=== PATIENT | female | born 1955 | race Hispanic/Latino ===

== ENCOUNTER 2017-03-05 20:12 | Inpatient (IN) | payer MEDICAID, OTHER ==
[2017-03-05 20:53] LABS: EOS % 1.1 % (0.0-4.0); HEMOGLOBIN 13.5 g/dL (11.0-16.0); LYMPH # 1.7 K/uL (1.0-4.3); LYMPH % 42.6 % (20.0-40.0); MEAN CELL VOLUME 94.9 fL (81.0-99.0); MEAN CORPUSCULAR HEMOGLOBIN 32.4 pg (27.0-31.0); MEAN CORPUSCULAR HGB CONC 34.1 g/dL (33.0-37.0); MEAN PLATELET VOLUME 9.6 fL (7.2-11.7); MONO # 0.4 K/uL (0.0-0.8); MONO % 10.4 % (0.0-10.0); NEUT # 1.8 K/uL (1.8-7.0); NEUT % 44.9 % (50.0-75.0); RBC 4.17 Mil/uL (3.80-5.20); RED CELL DISTRIBUTION WIDTH 12.6 % (11.5-14.5); WHITE BLOOD COUNT 4.1 K/uL (4.8-10.8)
[2017-03-05 21:07] LABS: ALB/GLOB RATIO 1.5 (1.0-2.1); AST/SGOT 24 U/L (14-36); BLOOD UREA NITROGEN 17 mg/dL (7-17); GFR AFRICAN-AMERICAN > 60; GFR NON-AFRICAN AMERICAN > 60
[2017-03-05 21:08] LABS: ALT/SGPT 20 U/L (9-52); BARBITURATES, UR NEGATIVE (NEGATIVE)
[2017-03-05 21:08] LABS: SQUAMOUS EPITHIAL 1 /hpf (0-5); URINE BACTERIA OCC (<OCC); URINE BILIRUBIN NEGATIVE (NEGATIVE); URINE BLOOD NEGATIVE (NEGATIVE); URINE CLARITY Clear (Clear); URINE COLOR Yellow (YELLOW); URINE GLUCOSE (UA) NORMAL (Normal); URINE LEUKOCYTE ESTERASE TRACE Leu/uL (Negative); URINE NITRATE NEGATIVE (NEGATIVE); URINE PROTEIN NEGATIVE (NEGATIVE); URINE UROBILINOGEN NORMAL mg/dL (0.2-1.0)
[2017-03-05 21:09] LABS: BENZODIAZEPINES, UR NEGATIVE (NEGATIVE)
[2017-03-05 21:12] LABS: OPIATES, UR NEGATIVE (NEGATIVE); PHENCYCLIDINE, UR NEGATIVE (NEGATIVE)
--- NOTE | 2017-03-05 21:13 | C.PDOC ---
History Of Present Illness Patient is a 61 y/o female, with PMHx of depression, that presents to the ED for evaluation of depression. Pt states she feels overwhelmed, and states she is "sick of the world", and is "having issues with the person she's living with ". Otherwise, denies any SI, or any physical complaints at this time. Time Seen by Provider: 03/05/17 20:55 Chief Complaint (Nursing): Psychiatric Evaluation History Per: Patient History/Exam Limitations: no limitations Onset/Duration Of Symptoms: Days Current Symptoms Are (Timing): Still Present Suicide/Self Injury Attempted (Context): None Modifying Factor(s): None Severity: None Pain Scale Rating Of: 0 Associated Symptoms: Depression. denies: Suicidal Thoughts, Suicidal Plan Involuntary Hold By: None Recent travel outside of the [place]: No Additional History Per: Patient Past Medical History Reviewed: Historical Data, Nursing Documentation, Vital Signs Vital Signs: Last Vital Signs Temp 97.6 F 03/05/17 23:23 Pulse 77 03/05/17 23:23 Resp 18 03/05/17 23:23 BP 119/67 03/05/17 23:23 Pulse Ox 95 03/05/17 23:23 - Medical History PMH: Anxiety, Asthma, Bipolar Disorder, Depression, Emphysema Family History: States: Unknown Family Hx - Social History Hx Tobacco Use: Yes Hx Alcohol Use: Yes (sober 9 yrs) Hx Substance Use: Yes (sober 9 yrs) - Immunization History Hx Tetanus Toxoid Vaccination: No Hx Influenza Vaccination: No Hx Pneumococcal Vaccination: No Review Of Systems Except As Marked, All Systems Reviewed And Found Negative. Constitutional: Negative for: Fever, Chills Cardiovascular: Negative for: Chest Pain, Palpitations Respiratory: Negative for: Shortness of Breath Gastrointestinal: Negative for: Nausea, Vomiting, Abdominal Pain Neurological: Negative for: Headache, Dizziness Psych: Positive for: Depression. Negative for: Suicidal ideation Physical Exam - Physical Exam Appears: Non-toxic, No Acute Distress, Other (tearful) Skin: Normal Color, Warm, Dry Head: Atraumatic, Normacephalic Eye(s): bilateral: Normal Inspection Neck: Supple Chest: Symmetrical Cardiovascular: Rhythm Regular Respiratory: Normal Breath Sounds, No Rales, No Rhonchi, No Wheezing Gastrointestinal/Abdominal: Soft, No Tenderness Extremity: Normal ROM, No Deformity Neurological/Psych: Oriented x3, Normal Speech, Normal Cognition ED Course And Treatment - Laboratory Results Result Diagrams: 03/05/17 20:46 03/05/17 20:46 O2 Sat by Pulse Oximetry: 97 (on RA) Pulse Ox Interpretation: Normal Progress Note: Labs ordered and reviewed. Medical Decision Making Medical Decision Making: depression - pt medically cleared 1020: pt accepted to crisis. Disposition - Disposition Disposition: HOSPITALIZED Disposition Time: 22:23 Condition: STABLE - Clinical Impression Clinical Impression: Depression - Scribe Statement The provider has reviewed the documentation as recorded by the Scribe Kathy Fischer All medical record entries made by the Scribe were at my direction and personally dictated by me. I have reviewed the chart and agree that the record accurately reflects my personal performance of the history, physical exam, medical decision making, and the department course for this patient. I have also personally directed, reviewed, and agree with the discharge instructions and disposition. Decision To Admit - Pt Status Changed To: Hospital Disposition Of: Inpatient - Admit Certification Admit to Inpatient:: After my assessment, the patient will require hospitalization for at least two midnights. This is because of the severity of symptoms shown, intensity of services needed, and/or the medical risk in this patient being treated as an outpatient. - InPatient: Physician Admission Certification: I certify that this patient requires 2 or more midnights of care for the following reason:: pt needs inpt pysch - . Bed Request Type: Psychiatry Admitting Physician: Karolyn Copeland Patient Diagnosis: Depression
[2017-03-05 21:18] LABS: ACETAMINOPHEN < 10.0 ug/mL (10.0-30.0); SALICYLATE < 1.0 mg/dL 1
[2017-03-05] MEDS ORDERED: Divalproex 500 mg ER Tab PO STA (23:47)
[2017-03-06 00:14] VITALS: O2SAT 97
[2017-03-06] MEDS ORDERED: Pneumococcal 23-Valent Vaccine IM ONE (00:36)
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
[2017-03-06] MEDS: Divalproex 500 mg DR Tab PO SCH ×2 (10:15→17:21)
[2017-03-06] MEDS: Albuterol-Ipratrop 20 mcg/actuation (4 g) IH SCH ×3 (13:39→21:50)
[2017-03-06] MEDS: Mometasone 110 mcg/puff-30 puff Inh INH SCH (21:50)
[2017-03-07] MEDS: Albuterol-Ipratrop 20 mcg/actuation (4 g) IH SCH ×2 (02:55→21:32)
[2017-03-07 09:00] VITALS: TEMP 98
--- NOTE | 2017-03-07 17:28 | PCM.PYCHPN ---
Psychiatric Progress Note - Psychiatric Progress Note Patient seen today, length of contact: 16 min Patient Chief Complaint: "I'm fine" Problems Identified/Issues Discussed: The pt is seen, chart reviewed, case discussed with staff. Support given, psychoed given No new symptoms reported, improving slowly and needs some more time No SEs from medications, risks discussed. After care discussed - she wants to leave by tomorrow and even put in a 48-hr notice Medication Change: No Medical Record Reviewed: Yes Mental Status Examination - Cognitive Function Orientation: Person, Place, Situation, Time Memory: Intact Attention: WNL Concentration: Poor Association: WNL Fund of Knowledge: WNL - Mood Mood: Other (Labile) - Affect Affect: Broad, Other (Labile) - Speech Speech: Appropriate - Formal Thought Process Formal Thought Process: Paranoia, Loosening of associations, Circumstantial - Suicidal Ideation Suicidal Ideation: No - Homicidal Ideation Homicidal Ideation: No Goal/Treatment Plan - Goal/Treatment Plan Need for Continued Stay: Discharge may exacerbated symptoms, Severe functional impairment Progress Toward Problem(s) and Goals/Treatment Plan: Continue medications Support and psychoeducation daily Attend groups and activities daily After care planning by GRISELDA but she wants to leave Estimated Date of D/C: 03/08/17
[2017-03-07] MEDS: Divalproex 500 mg DR Tab PO SCH (21:29)
[2017-03-07] MEDS: Mometasone 110 mcg/puff-30 puff Inh INH SCH (21:32)
[2017-03-08 07:54] VITALS: BP 114/79; PULSE 98; RESP 20
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
== END 2017-03-08 14:00 | disposition home or self-care (01) | DRG 430 ==
LOC: C.ER 20:12 → C.5E 22:21 → MERGE 22:21
PROVIDERS: ADMIT Psychiatry & Neurology Psychiatry; ATTEND Psychiatry & Neurology Psychiatry
PROC: GZHZZZZ Group Psychotherapy (ICD-10-PCS; principal; 2017-03-05)
PROC: GZ58ZZZ Individual Psychotherapy, Cognitive-Behavioral (ICD-10-PCS; 2017-03-05)
PROC: GZ56ZZZ Individual Psychotherapy, Supportive (ICD-10-PCS; 2017-03-05)
DX: F31.64 Bipolar disorder, current episode mixed, severe, with psychotic features (principal); J43.9 Emphysema, unspecified; F41.9 Anxiety disorder, unspecified; J45.909 Unspecified asthma, uncomplicated; F17.210 Nicotine dependence, cigarettes, uncomplicated; G47.30 Sleep apnea, unspecified; F10.21 Alcohol dependence, in remission; F32.9 Major depressive disorder, single episode, unspecified

== ENCOUNTER 2017-10-18 15:50 | Emergency (ER) | payer OTHER ==
[2017-10-18 16:22] VITALS: BP 126/78; PULSE 94; RESP 16; TEMP 98; O2SAT 98
--- NOTE | 2017-10-18 17:42 | C.PDOC ---
History Of Present Illness 62 year old female presents to the ED for evaluation of cough, congestion and malaise which began 4 days ago. Patient states her cough is productive of white sputum. She denies decreased appetite, nausea, vomiting. Time Seen by Provider: 10/18/17 16:55 Chief Complaint (Nursing): Flu-like Symptoms History Per: Patient History/Exam Limitations: no limitations Onset/Duration Of Symptoms: Days (4) Current Symptoms Are (Timing): Still Present Location Of Pain: Diffuse Myalgias Sick Contacts (Context): None Associated Symptoms: Cough, Other Ear Symptoms: Bilateral: None Additional History Per: Patient Past Medical History Reviewed: Historical Data, Nursing Documentation, Vital Signs Vital Signs: Last Vital Signs Temp 98 F 10/18/17 16:19 Pulse 94 H 10/18/17 16:19 Resp 16 10/18/17 16:19 BP 126/78 10/18/17 16:19 Pulse Ox 98 10/18/17 20:17 - Medical History PMH: Anxiety, Asthma, Bipolar Disorder, Depression, Emphysema Denies: Diabetes, Hepatitis, HIV, HTN, Chronic Kidney Disease, Seizures, Sexually Transmitted Disease Surgical History: No Surg Hx - [facility] Procedures GROUP PSYCHOTHERAPY (03/05/17) INDIVIDUAL PSYCHOTHERAPY, COGNITIVE-BEHAVIORAL (03/05/17) INDIVIDUAL PSYCHOTHERAPY, SUPPORTIVE (03/05/17) Family History: States: Unknown Family Hx - Social History Hx Tobacco Use: Yes Hx Alcohol Use: Yes (sober 9 yrs) Hx Substance Use: Yes - Immunization History Hx Tetanus Toxoid Vaccination: No Hx Influenza Vaccination: No Hx Pneumococcal Vaccination: No Review Of Systems Constitutional: Positive for: Malaise Respiratory: Positive for: Cough, Other (congestion ) Gastrointestinal: Negative for: Nausea, Vomiting Physical Exam - Physical Exam Appears: Non-toxic, No Acute Distress Skin: Normal Color, Warm, Dry Head: Atraumatic, Normacephalic Eye(s): bilateral: Normal Inspection Ear(s): Bilateral: Normal Nose: Other (nasal congestion ) Oral Mucosa: Moist Throat: Normal, No Erythema, No Exudate Neck: Supple Chest: Symmetrical, No Deformity, No Tenderness Cardiovascular: Rhythm Regular, No Murmur Respiratory: No Rales, Rhonchi (scattered), No Wheezing Extremity: Normal ROM, Capillary Refill (less than 2 seconds ) Neurological/Psych: Normal Speech, Normal Cognition Gait: Steady ED Course And Treatment O2 Sat by Pulse Oximetry: 98 (on RA) Pulse Ox Interpretation: Normal Medical Decision Making Medical Decision Making: CXR reviewed showing no infiltrates, pleural effusion or pneumothorax Patient remained afebrile alert and oriented with stable vital signs during ER evaluation. On re-examination, patient is resting comfortably in no acute distress. Lungs clear bilaterally. Patient has no fever and in no distress. Patient will be discharged with Rx. Patient given follow up instructions. Instructed to return to ER if symptoms worsen or new symptoms arise. Disposition Counseled Patient/Family Regarding: Diagnosis, Need For Followup, Rx Given - Disposition Disposition: HOME/ ROUTINE Disposition Time: 17:41 Condition: GOOD Additional Instructions: Follow up with your primary medical doctor or clinic in 2-5 days for further evaluation. Take medications as prescribed. Return to the emergency department at any time if symptoms persist or worsen. Prescriptions: Benzonatate [Tessalon Perles] 100 mg PO TID #30 sgl levoFLOXacin [Levaquin] 750 mg PO DAILY #7 tab Instructions: Acute Bronchitis Forms: [employer] (Nigerien) - POA Present On Arrival: None - Clinical Impression Clinical Impression: Bronchitis - PA / SAUSAGE STUFFER / Resident Statement MD/DO has reviewed & agrees with the documentation as recorded. - Scribe Statement The provider has reviewed the documentation as recorded by the Scribe (Fanny Fischer) All medical record entries made by the Scribe were at my direction and personally dictated by me. I have reviewed the chart and agree that the record accurately reflects my personal performance of the history, physical exam, medical decision making, and the department course for this patient. I have also personally directed, reviewed, and agree with the discharge instructions and disposition.
--- NOTE | 2017-10-18 18:10 | RAD ---
HISTORY: COUGH COMPARISON: Comparison is made with 07/04/2016 TECHNIQUE: Chest PA and lateral FINDINGS: LUNGS: No evidence of new infiltrate or consolidation in the lungs. Mild hyperinflation of the lungs is again noted. Small bibasilar opacities are likely represent atelectasis. PLEURA: No significant pleural effusion identified. No pneumothorax apparent. CARDIOVASCULAR: Normal. OSSEOUS STRUCTURES: No significant abnormalities. VISUALIZED UPPER ABDOMEN: Normal. OTHER FINDINGS: None. IMPRESSION: No radiographic evidence of pneumonia.
== END 2017-10-18 17:49 | disposition home or self-care (01) ==
LOC: C.ER 15:50
DX: J40 Bronchitis, not specified as acute or chronic (principal)

== ENCOUNTER 2018-09-28 10:52 | Emergency (ER) | payer OTHER ==
[2018-09-28 10:57] VITALS: BP 197/82; PULSE 109; RESP 20; TEMP 98.2; O2SAT 97
--- NOTE | 2018-09-28 11:35 | C.PDOC ---
History Of Present Illness 63 year old female presents to the ED for psychiatric evaluation of depression. Patient denies suicidal ideation. Patient is a poor historian. POOR HISTORIAN CO DEPRESSION. DENIES SUICIDAL IDEATION. ROS UTO EXAM PSYCH FLAT AFFECT, NO GROSS INTOX/WITHDRAWAL REMAINDER NEG Time Seen by Provider: 09/28/18 11:02 Chief Complaint (Nursing): Psychiatric Evaluation History Per: Patient History/Exam Limitations: other (poor historian ) Current Symptoms Are (Timing): Still Present Associated Symptoms: Depression. denies: Suicidal Thoughts, Suicidal Plan Involuntary Hold By: None Recent travel outside of the [place]: No Additional History Per: Patient Past Medical History Reviewed: Historical Data, Nursing Documentation, Vital Signs Vital Signs: Last Vital Signs Temp 98.2 F 09/28/18 11:00 Pulse 109 H 09/28/18 11:00 Resp 20 09/28/18 11:00 BP 197/82 H 09/28/18 11:00 Pulse Ox 97 09/28/18 11:00 - Medical History PMH: Anxiety, Asthma, Bipolar Disorder, Depression, Emphysema Denies: Diabetes, Hepatitis, HIV, HTN, Chronic Kidney Disease, Seizures, Sexually Transmitted Disease Surgical History: Appendectomy - [facility] Procedures GROUP PSYCHOTHERAPY (03/05/17) INDIVIDUAL PSYCHOTHERAPY, COGNITIVE-BEHAVIORAL (03/05/17) INDIVIDUAL PSYCHOTHERAPY, SUPPORTIVE (03/05/17) Family History: States: Unknown Family Hx - Social History Hx Tobacco Use: Yes Hx Alcohol Use: Yes (sober 9 yrs) Hx Substance Use: No - Immunization History Hx Tetanus Toxoid Vaccination: No Hx Influenza Vaccination: Yes Hx Pneumococcal Vaccination: No Review Of Systems Review Of Systems: ROS cannot be obtained secondary to pt's inabilty to answer questions. Physical Exam - Physical Exam Appears: Non-toxic, No Acute Distress Skin: Normal Color, Warm, Dry Head: Atraumatic, Normacephalic Eye(s): bilateral: Normal Inspection Oral Mucosa: Moist Neck: Supple Chest: Symmetrical, No Deformity Cardiovascular: Rhythm Regular, No Murmur Respiratory: Normal Breath Sounds, No Rales, No Rhonchi, No Wheezing Extremity: Normal ROM Neurological/Psych: Other (flat affect, no gross intoxication or withdrawal ) ED Course And Treatment O2 Sat by Pulse Oximetry: 97 (on RA ) Progress Note: bloodwork and UA ordered. Progress - Re-Evaluation Re-evaluation Note: 09/28/18 11:38 D/W CRISIS RYAN WILL EVAL IN ER 09/28/18 13:01 PT W INCR AGITATION, NOW REFUSING FURTHER EVALUATION AND WISHES DC. CRISIS RYAN REEVAL, PENDING D/W DR GUERRA 09/28/18 13:10 CLEAR FOR OUTPT FU SCHEDULED IN [place] - Data Reviewed Data Reviewed: Lab, Old records Disposition Counseled Patient/Family Regarding: Studies Performed, Diagnosis, Need For Followup - Disposition Referrals: YOUR,PSYCHIATRIST [Other] Disposition: HOME/ ROUTINE Disposition Time: 13:12 Condition: GOOD Instructions: Bipolar Disorder (DC) Forms: [employer] (Bengali) - Clinical Impression Clinical Impression: Bipolar disorder - Scribe Statement The provider has reviewed the documentation as recorded by the Scribe (Fanny Fischer) Provider Attestation: All medical record entries made by the Scribe were at my direction and personally dictated by me. I have reviewed the chart and agree that the record accurately reflects my personal performance of the history, physical exam, medical decision making, and the department course for this patient. I have also personally directed, reviewed, and agree with the discharge instructions and disposition.
[2018-09-28 12:42] LABS: SQUAMOUS EPITHIAL < 1 /hpf (0-5); URINE BACTERIA OCC (<OCC); URINE BILIRUBIN NEGATIVE (NEGATIVE); URINE BLOOD NEGATIVE (NEGATIVE); URINE CLARITY Clear (Clear); URINE COLOR Straw (YELLOW); URINE GLUCOSE (UA) NORMAL (Normal); URINE LEUKOCYTE ESTERASE NEG Leu/uL (Negative); URINE PROTEIN NEGATIVE (NEGATIVE); URINE UROBILINOGEN NORMAL mg/dL (0.2-1.0)
[2018-09-28 13:12] LABS: ALB/GLOB RATIO 1.8 (1.0-2.1); ALBUMIN 4.7 g/dL (3.5-5.0); ALT/SGPT 17 U/L (9-52); AST/SGOT 23 U/L (14-36); BLOOD UREA NITROGEN 15 mg/dL (7-17); CALCIUM 9.5 mg/dl (8.6-10.4); GFR NON-AFRICAN AMERICAN > 60
[2018-09-28 13:12] LABS: BARBITURATES, UR NEGATIVE (NEGATIVE); BENZODIAZEPINES, UR NEGATIVE (NEGATIVE); OPIATES, UR NEGATIVE (NEGATIVE); PHENCYCLIDINE, UR NEGATIVE (NEGATIVE)
== END 2018-09-28 13:18 | disposition home or self-care (01) ==
LOC: C.ER 10:52
DX: F31.9 Bipolar disorder, unspecified (principal); F41.9 Anxiety disorder, unspecified; J45.909 Unspecified asthma, uncomplicated; F17.210 Nicotine dependence, cigarettes, uncomplicated